=== PATIENT | male | born 1970 | race African-American/Black ===

== ENCOUNTER 2020-12-31 15:45 | Emergency (ER) | payer OTHER ==
[~2020-12-31] VITALS: Ht 182.9 cm; Wt 107.0 kg
[2020-12-31] MEDS ORDERED: OZEMPIC1 MG/0.71 SUBQ ×2 (16:09→17:02)
[2020-12-31] MEDS ORDERED: METFORMIN HCL500 M3 PO (16:09)
[2020-12-31 17:27] VITALS: BP 173/91
== END 2020-12-31 17:29 | disposition home or self-care (01) ==
LOC: ER 15:45
DX: E11.65 Type 2 diabetes mellitus with hyperglycemia (principal); Z76.0 Encounter for issue of repeat prescription